=== PATIENT | female | born 1935 | race Caucasian/White ===

== ENCOUNTER 2016-07-15 21:56 | Inpatient (IN) | payer OTHER ==
[2016-07-15] MEDS ORDERED: NS 1,000 ML IV ONE (22:41)
[2016-07-15] MEDS ORDERED: FAMOTIDINE 20 MG/NACL 50 ML IV ONE (22:41)
[2016-07-15] MEDS ORDERED: ONDANSETRON 4 MG/2 ML VIAL IVP ONE (22:41)
--- NOTE | 2016-07-15 22:47 | EDPHY ---
H & P Stated Complaint: Abd pain since 1200 today Time Seen by Provider: 07/15/16 22:11 HPI/ROS: HPI The patient presents with abdominal pain which is in her mid central abdomen and radiates toward her back bilaterally. It has been present since noon today and has been constant, getting progressively worse. It is associated with nausea without vomiting and 2 loose bowel movements. She has not had a fever but has had cold sweats. She thinks the pain began with a feeling of acid reflux and took Zantac for this. REVIEW OF SYSTEMS Constitutional: No fever, no chills. Eyes: No discharge. ENT: No sore throat. Cardiovascular: No chest pain, no palpitations. Respiratory: No cough, no shortness of breath. Gastrointestinal: See HPI Genitourinary: No hematuria. Musculoskeletal: No back pain. Skin: No rashes. Neurological: No headache. PMHx: Status post cholecystectomy, status post appendectomy Soc Hx: Lives in [place] independently PHYSICAL General Appearance: Alert, no distress Eyes: Pupils equal and round no pallor or injection ENT, Mouth: Mucous membranes moist Respiratory: There are no retractions, lungs are clear to auscultation Cardiovascular: Regular rate and rhythm Gastrointestinal: Abdomen is soft with epigastric tenderness without rebound or guarding Neurological: A&O, moves all extremities Skin: Warm and dry, no rashes Musculoskeletal: Neck is supple non tender Extremities: symmetrical, full range of motion Psychiatric: Patient is oriented X 3, there is no agitation Source: Patient Exam Limitations: No limitations - Personal History Current Tetanus/Diphtheria Vaccine: No Current Tetanus Diphtheria and Acellular Pertussis (TDAP): No - Medical/Surgical History Hx Asthma: No Hx Chronic Respiratory Disease: No Hx Diabetes: No Hx Cardiac Disease: No Hx Renal Disease: No Hx Cirrhosis: No Hx Alcoholism: No Hx HIV/AIDS: No Hx Splenectomy or Spleen Trauma: No Other PMH: cholecystectomy, appendectomy, x 2 - Social History Smoking Status: Never smoked Constitutional: Initial Vital Signs Temperature (C) 36.6 C 07/15/16 22:04 Heart Rate 120 H 07/15/16 22:04 Respiratory Rate 16 07/15/16 22:04 Blood Pressure 180/151 H 07/15/16 22:04 O2 Sat (%) 96 07/15/16 22:04 O2 Delivery Mode Room Air Allergies/Adverse Reactions: No Known Allergies Allergy (Verified 07/15/16 22:01) Home Medications: Medication Instructions Recorded Esomeprazole Mag Trihydrate 40 mg PO DAILY18 02/21/14 [Nexium] Atorvastatin Calcium [Lipitor 10 10 mg PO DAILY 02/22/14 mg (*)] Herbals/Supplements -Info Only 1 ea PO DAILY 02/22/14 diphenhydrAMINE [Benadryl 25 MG 25 mg PO HS 02/22/14 (*)] Avapro 07/15/16 Medical Decision Making - Diagnostics Imaging: CT scan of abdomen pelvis performed with IV contrast demonstrates choledocholithiasis, discussed with Dr. Block of Radiology. ED Course/Re-evaluation: In the emergency room, the patient was given IV fluids and several doses of morphine for her pain. Labs were checked and revealed elevated liver tests. CT scan was performed that demonstrated choledocholithiasis. She is status post cholecystectomy. I have discussed the case with the hospitalist Dr. Alvares and we plan to admit her for GI consultation and likely ERCP. Dr. Alvares was able to discuss the case with the substation operator apprentice. I have explained these findings to the patient and her friend at the bedside. Differential Diagnosis: This is a 80-year-old female status post appendectomy and cholecystectomy who presents from home with abdominal pain for the last several hours associated with nausea and loose stools. On exam, she is tachycardic, tender in her epigastric region. Differential diagnosis includes ischemic colitis, gastroenteritis, toxin mediated enterocolitis, pancreatitis, bowel obstruction. - Data Points Laboratory Results: Laboratory Results 07/16/16 00:10 07/16/16 00:10 07/16/16 07/16/16 07/16/16 00:30 00:10 00:10 WBC 11.71 10^3/uL H 10^3/uL (3.80-9.50) RBC 4.69 10^6/uL 10^6/uL (4.18-5.33) Hgb 13.7 g/dL g/dL (12.6-16.3) Hct 40.8 % % (38.0-47.0) MCV 87.0 fL fL (81.5-99.8) MCH 29.2 pg pg (27.9-34.1) MCHC 33.6 g/dL g/dL (32.4-36.7) RDW 13.4 % % (11.5-15.2) Plt Count 181 10^3/uL 10^3/uL (150-400) MPV 11.4 fL fL (8.7-11.7) Neut % (Auto) 91.9 % H % (39.3-74.2) Lymph % (Auto) 1.5 % L % (15.0-45.0) [place] % (Auto) 5.9 % % (4.5-13.0) Eos % (Auto) 0.0 % L % (0.6-7.6) Baso % (Auto) 0.3 % % (0.3-1.7) Nucleat RBC Rel Count 0.0 % % (0.0-0.2) Absolute Neuts (auto) 10.76 10^3/uL H 10^3/uL (1.70-6.50) Absolute Lymphs (auto) 0.18 10^3/uL L 10^3/uL (1.00-3.00) Absolute Monos (auto) 0.69 10^3/uL 10^3/uL (0.30-0.80) Absolute Eos (auto) 0.00 10^3/uL L 10^3/uL (0.03-0.40) Absolute Basos (auto) 0.03 10^3/uL 10^3/uL (0.02-0.10) Absolute Nucleated RBC 0.00 10^3/uL 10^3/uL (0-0.01) Immature Gran % 0.4 % % (0.0-1.1) Immature Gran # 0.05 10^3/uL 10^3/uL (0.00-0.10) VBG Lactic Acid Sodium 140 mEq/L mEq/L (134-144) Potassium 3.6 mEq/L mEq/L (3.5-5.2) Chloride 109 mEq/L mEq/L (97-110) Carbon Dioxide 22 mEq/l mEq/l (22-31) Anion Gap 9 mEq/L mEq/L (8-16) BUN 13 mg/dL mg/dL (7-23) Creatinine 1.0 mg/dL mg/dL (0.6-1.0) Estimated GFR 54 Glucose 154 mg/dL H mg/dL (70-100) Calcium 8.7 mg/dL mg/dL (8.5-10.4) Total Bilirubin 4.8 mg/dL H mg/dL (0.1-1.4) Conjugated Bilirubin 1.9 mg/dL H mg/dL (0.0-0.5) Unconjugated Bilirubin 2.9 mg/dL H mg/dL (0.0-1.1) AST 1428 IU/L H IU/L (14-46) ALT 824 IU/L H IU/L (9-52) Alkaline Phosphatase 151 IU/L H IU/L (38-126) Total Protein 6.6 g/dL g/dL (6.3-8.2) Albumin 4.3 g/dL g/dL (3.5-5.0) Lipase 227.0 IU/L IU/L (23-300) Urine Color YELLOW Urine Appearance CLEAR Urine pH 6.0 (5.0-7.5) Ur Specific [place] 1.010 (1.002-1.030) Urine Protein NEGATIVE (NEGATIVE) Urine Ketones NEGATIVE (NEGATIVE) Urine Blood 1+ H (NEGATIVE) Urine Nitrate NEGATIVE (NEGATIVE) Urine Bilirubin NEGATIVE (NEGATIVE) Urine Urobilinogen NEGATIVE EU EU (0.2-1.0) Ur Leukocyte Esterase NEGATIVE (NEGATIVE) Urine RBC 3-5 /hpf H /hpf (0-3) Urine WBC 1-3 /hpf /hpf (0-3) Ur Epithelial Cells TRACE /lpf /lpf (NONE-1+) Urine Mucus TRACE /lpf /lpf (NONE-1+) Ur Culture Indicated? NOT INDICATED (NI) Urine Glucose 1+ H (NEGATIVE) 07/16/16 00:10 WBC RBC Hgb Hct MCV MCH MCHC RDW Plt Count MPV Neut % (Auto) Lymph % (Auto) [place] % (Auto) Eos % (Auto) Baso % (Auto) Nucleat RBC Rel Count Absolute Neuts (auto) Absolute Lymphs (auto) Absolute Monos (auto) Absolute Eos (auto) Absolute Basos (auto) Absolute Nucleated RBC Immature Gran % Immature Gran # VBG Lactic Acid 1.9 mmol/L mmol/L (0.7-2.1) Sodium Potassium Chloride Carbon Dioxide Anion Gap BUN Creatinine Estimated GFR Glucose Calcium Total Bilirubin Conjugated Bilirubin Unconjugated Bilirubin AST ALT Alkaline Phosphatase Total Protein Albumin Lipase Urine Color Urine Appearance Urine pH Ur Specific [place] Urine Protein Urine Ketones Urine Blood Urine Nitrate Urine Bilirubin Urine Urobilinogen Ur Leukocyte Esterase Urine RBC Urine WBC Ur Epithelial Cells Urine Mucus Ur Culture Indicated? Urine Glucose Medications Given: Discontinued Medications Sodium Chloride (Ns) 1,000 mls @ 0 mls/hr IV ONCE ONE PRN Reason: Wide Open Stop: 07/15/16 22:42 Last Admin: 07/15/16 23:05 Dose: 1,000 mls Famotidine/Sodium Chloride (Pepcid 20 Mg (Premix)) 50 mls @ 200 mls/hr IV EDNOW ONE Stop: 07/15/16 22:55 Last Admin: 07/15/16 23:10 Dose: 50 mls Morphine Sulfate (Morphine) 4 mg IVP EDNOW ONE Stop: 07/15/16 22:42 Last Admin: 07/15/16 23:10 Dose: 4 mg Morphine Sulfate (Morphine) 4 mg IVP EDNOW ONE Stop: 07/16/16 00:30 Last Admin: 07/16/16 00:30 Dose: 4 mg Morphine Sulfate (Morphine) 4 mg IVP EDNOW ONE Stop: 07/16/16 01:46 Last Admin: 07/16/16 01:57 Dose: 4 mg Ondansetron HCl (Zofran) 4 mg IVP EDNOW ONE Stop: 07/15/16 22:42 Last Admin: 07/15/16 23:10 Dose: 4 mg Departure - Departure Disposition: [facility] Acute Clinical Impression: Choledocholithiasis, Abdominal pain, Tachycardia Condition: Fair
[2016-07-15] MEDS ORDERED: IOPAMIDOL (ISOVUE-300) 100 ML BTL IV ONE (23:12)
[2016-07-16 00:22] LABS: % IMMATURE GRANULYOCYTES 0.4 % (0.0-1.1); ABSOLUTE IMMATURE GRANULOCYTES 0.05 10^3/uL (0.00-0.10); ADD DIFF? NO; ADD MORPH? NO; ADD SCAN? NO; ATYPICAL LYMPHOCYTE FLAG 0 (0-99); FRAGMENT RBC FLAG 0 (0-99); HEMATOCRIT 40.8 % (38.0-47.0); HEMOGLOBIN 13.7 g/dL (12.6-16.3); LEFT SHIFT FLG 10 (0-99); LIPEMIA HEMOLYSIS FLAG 80 (0-99); MEAN CELL HEMOGLOBIN 29.2 pg (27.9-34.1); MEAN CELL HEMOGLOBIN CONCENTR. 33.6 g/dL (32.4-36.7); MEAN PLATELET VOLUME 11.4 fL (8.7-11.7); PLATELET CLUMPS FLAG 0 (0-99); PLATELET COUNT 181 10^3/uL (150-400); RED BLOOD CELL COUNT 4.69 10^6/uL (4.18-5.33); RED CELL DISTRIBUTION WIDTH 13.4 % (11.5-15.2)
[2016-07-16 00:33] LABS: ALANINE AMINOTRANSFERASE 824 IU/L (9-52); ALBUMIN 4.3 g/dL (3.5-5.0); ALKALINE PHOSPHATASE 151 IU/L (38-126); ANION GAP 9 mEq/L (8-16); BILIRUBIN,TOTAL 4.8 mg/dL (0.1-1.4); BILIRUBIN-CONJUGATED 1.9 mg/dL (0.0-0.5); BILIRUBIN-UNCONJUGATED 2.9 mg/dL (0.0-1.1); CALCIUM 8.7 mg/dL (8.5-10.4); CARBON DIOXIDE 22 mEq/l (22-31); CHLORIDE 109 mEq/L (97-110); GLOMERULAR FILTRATION RATE 54; GLUCOSE 154 mg/dL (70-100); POTASSIUM 3.6 mEq/L (3.5-5.2); SODIUM 140 mEq/L (134-144); TOTAL PROTEIN 6.6 g/dL (6.3-8.2)
[2016-07-16 00:40] LABS: COLOR YELLOW; LEUKOCYTE ESTERASE,URINE NEGATIVE (NEGATIVE); NITRITE,URINE NEGATIVE (NEGATIVE)
[2016-07-16 00:45] LABS: ASPARTATE AMINOTRANSFERASE 1428 IU/L (14-46)
[2016-07-16 01:05] LABS: MUCUS TRACE /lpf (NONE-1+)
[2016-07-16] MEDS ORDERED: ACETAMINOPHEN 325 MG TAB PO PRN (01:57)
[2016-07-16] MEDS ORDERED: ONDANSETRON 4 MG/2 ML VIAL IVP PRN (01:57)
[2016-07-16] MEDS ORDERED: ONDANSETRON DISINTEGRATING 4 MG TAB PO PRN (01:57)
[2016-07-16] MEDS ORDERED: ERTAPENEM 1 GM in NS 100 ML IV SCH ×3 (02:04→21:00)
--- NOTE | 2016-07-16 02:14 | PDGENHP ---
History and Physical - Chief Complaint abdominal pain - History of Present Illness Patient is a 80 year old female with htn, s/p cholecystectomy who presents to the ED with complaint of epigastric abdominal pain. Patient states symptoms started at around noon on the day of presentation, with mild epigastric discomfort/cramping. This pain progressed throughout the day and by the evening she had episodes of nausea, without vomiting. She describes the pain as knawing/ throbbing in nature in the upper half of her abdomen, sometimes radiating to her back. She also reports some associated chills. Denies any chest pain, palpitations, shortness of breath, diarrhea and reports last BM was this afternoon, normal in color and consistency. On arrival to the ED, patient was afebrile, somewhat tachycardic, normal BP. Labs revealed mild leukocytosis, elevated LFTs and bilirubin, normal lipase. CT abd/pelvis was then obtained and revealed choledocholithiasis with mild CBD dilation and stones in the distal CBD. History Information - Allergies/Home Medication List Allergies/Adverse Reactions: No Known Allergies Allergy (Verified 07/15/16 22:01) Home Medications: Esomeprazole Mag Trihydrate [Nexium] 40 mg PO DAILY18 02/21/14 [Last Taken 02/20] Atorvastatin Calcium [Lipitor 10 mg (*)] 10 mg PO DAILY 02/22/14 [Last Taken 07/01] Herbals/Supplements -Info Only 1 ea PO DAILY 02/22/14 [Last Taken Unknown] diphenhydrAMINE [Benadryl 25 MG (*)] 25 mg PO HS 02/22/14 [Last Taken 02/20/14] Avapro 07/15/16 [Last Taken Unknown] I have personally reviewed and updated: family history, medical history, social history, surgical history - Past Medical History hypertension Additional medical history: h/o hyperparathyroidism, s/p Parathyroidectomy - Surgical History Additional surgical history: appendectomy. cholecystectomy. parathyroidectomy. cataract repair. tonsillectomy. x 2 - Family History Positive for: non-pertinent - Social History Smoking Status: Never smoked Alcohol Use: None Drug Use: None Additional social history: Patient lives alone with 2 cats and 2 dogs, independent in ADLs. Daughter lives in the area, is involved in her care. Review of Systems ROS: 10pt was reviewed & negative except for what was stated in HPI & below Physical Exam Temp Pulse Resp BP Pulse Ox 36.8 C 128 H 16 163/93 H 93 07/16/16 01:23 07/16/16 01:23 07/16/16 01:23 07/16/16 01:23 07/16/16 01:23 Constitutional: no apparent distress, appears nourished, uncomfortable Eyes: PERRL, anicteric sclera, EOMI Ears, Nose, Mouth, Throat: hearing normal, ears appear normal, no oral mucosal ulcers, dry mucous membranes Cardiovascular: regular rate and rhythym, no murmur, rub, or gallop, pulses symmetric bilaterally, tachycardia, No JVD, No edema Peripheral Pulses: 2+: dorsalis-pedis (R), dorsalis-pedis (L) Respiratory: no respiratory distress, no rales or rhonchi, clear to auscultation Gastrointestinal: normoactive bowel sounds, no palpable masses, tenderness ( slight tenderness in epigastrum), No guarding, No rebound, No distension Genitourinary: no bladder fullness, no bladder tenderness Skin: warm, normal color, no rashes or abrasions, no fluctuance, no induration, No mottled Musculoskeletal: full muscle strength, no muscle tenderness, normal joint ROM, no joint effusions Neurologic: AAOx3, sensation intact bilaterally, CN II-XII Intact, No weakness, No numbness, No facial droop Psychiatric: interacting appropriately, not anxious, not encephalopathic, thought process linear Lab Data & Imaging Review 07/16/16 00:10 07/16/16 00:10 WBC 11.71 10^3/uL (3.80-9.50) H 07/16/16 00:10 RBC 4.69 10^6/uL (4.18-5.33) 07/16/16 00:10 Hgb 13.7 g/dL (12.6-16.3) 07/16/16 00:10 Hct 40.8 % (38.0-47.0) 07/16/16 00:10 MCV 87.0 fL (81.5-99.8) 07/16/16 00:10 MCH 29.2 pg (27.9-34.1) 07/16/16 00:10 MCHC 33.6 g/dL (32.4-36.7) 07/16/16 00:10 RDW 13.4 % (11.5-15.2) 07/16/16 00:10 Plt Count 181 10^3/uL (150-400) 07/16/16 00:10 MPV 11.4 fL (8.7-11.7) 07/16/16 00:10 Neut % (Auto) 91.9 % (39.3-74.2) H 07/16/16 00:10 Lymph % (Auto) 1.5 % (15.0-45.0) L 07/16/16 00:10 [place] % (Auto) 5.9 % (4.5-13.0) 07/16/16 00:10 Eos % (Auto) 0.0 % (0.6-7.6) L 07/16/16 00:10 Baso % (Auto) 0.3 % (0.3-1.7) 07/16/16 00:10 Nucleat RBC Rel Count 0.0 % (0.0-0.2) 07/16/16 00:10 Absolute Neuts (auto) 10.76 10^3/uL (1.70-6.50) H 07/16/16 00:10 Absolute Lymphs (auto) 0.18 10^3/uL (1.00-3.00) L 07/16/16 00:10 Absolute Monos (auto) 0.69 10^3/uL (0.30-0.80) 07/16/16 00:10 Absolute Eos (auto) 0.00 10^3/uL (0.03-0.40) L 07/16/16 00:10 Absolute Basos (auto) 0.03 10^3/uL (0.02-0.10) 07/16/16 00:10 Absolute Nucleated RBC 0.00 10^3/uL (0-0.01) 07/16/16 00:10 Immature Gran % 0.4 % (0.0-1.1) 07/16/16 00:10 Immature Gran # 0.05 10^3/uL (0.00-0.10) 07/16/16 00:10 VBG Lactic Acid 1.9 mmol/L (0.7-2.1) 07/16/16 00:10 Sodium 140 mEq/L (134-144) 07/16/16 00:10 Potassium 3.6 mEq/L (3.5-5.2) 07/16/16 00:10 Chloride 109 mEq/L (97-110) 07/16/16 00:10 Carbon Dioxide 22 mEq/l (22-31) 07/16/16 00:10 Anion Gap 9 mEq/L (8-16) 07/16/16 00:10 BUN 13 mg/dL (7-23) 07/16/16 00:10 Creatinine 1.0 mg/dL (0.6-1.0) 07/16/16 00:10 Estimated GFR 54 07/16/16 00:10 Glucose 154 mg/dL (70-100) H 07/16/16 00:10 Calcium 8.7 mg/dL (8.5-10.4) 07/16/16 00:10 Total Bilirubin 4.8 mg/dL (0.1-1.4) H 07/16/16 00:10 Conjugated Bilirubin 1.9 mg/dL (0.0-0.5) H 07/16/16 00:10 Unconjugated Bilirubin 2.9 mg/dL (0.0-1.1) H 07/16/16 00:10 AST 1428 IU/L (14-46) H 07/16/16 00:10 ALT 824 IU/L (9-52) H 07/16/16 00:10 Alkaline Phosphatase 151 IU/L (38-126) H 07/16/16 00:10 Total Protein 6.6 g/dL (6.3-8.2) 07/16/16 00:10 Albumin 4.3 g/dL (3.5-5.0) 07/16/16 00:10 Lipase 227.0 IU/L (23-300) 07/16/16 00:10 Urine Color YELLOW 07/16/16 00:30 Urine Appearance CLEAR 07/16/16 00:30 Urine pH 6.0 (5.0-7.5) 07/16/16 00:30 Ur Specific [place] 1.010 (1.002-1.030) 07/16/16 00:30 Urine Protein NEGATIVE (NEGATIVE) 07/16/16 00:30 Urine Ketones NEGATIVE (NEGATIVE) 07/16/16 00:30 Urine Blood 1+ (NEGATIVE) H 07/16/16 00:30 Urine Nitrate NEGATIVE (NEGATIVE) 07/16/16 00:30 Urine Bilirubin NEGATIVE (NEGATIVE) 07/16/16 00:30 Urine Urobilinogen NEGATIVE EU (0.2-1.0) 07/16/16 00:30 Ur Leukocyte Esterase NEGATIVE (NEGATIVE) 07/16/16 00:30 Urine RBC 3-5 /hpf (0-3) H 07/16/16 00:30 Urine WBC 1-3 /hpf (0-3) 07/16/16 00:30 Ur Epithelial Cells TRACE /lpf (NONE-1+) 07/16/16 00:30 Urine Mucus TRACE /lpf (NONE-1+) 07/16/16 00:30 Ur Culture Indicated? NOT INDICATED (NI) 07/16/16 00:30 Urine Glucose 1+ (NEGATIVE) H 07/16/16 00:30 Visualized and Interpreted imaging results: Yes Interpretation: CT abd/pelvis: Moderate dilatation CBD with sludge vs stones in distal CBD Assessment & Plan Assessment: Patient is a 80 year old female with previous cholecystectomy who presents to the ED with 1 day of abdominal pain and nausea. ED work up reveals likely choledocholithiasis. Plan: # choledocholithiasis Patient with epigastric pain, deranged LFTs and CT showing sludge vs stones in a dilated CBD. GI has been consulted and will perform ERCP in AM. Will maintain NPO, give gentle IVF hydration and control symptoms # early cholangitis Patient with mild leukocytosis and tachycardia consistent with possible early cholangitis. Lactic acid is normal and patient is afebrile and hemodynamically stable. Will cover with ertanepem in preparation for ERCP in am. # tachycardia Likely multifactorial, related to acute infection, acute pain and patient anxiety. Will check EKG to confirm sinus rhythm. # hypertension Patient with chronic HTN, BP is elevated on presentation. Will need to confirm and continue her home meds. # dispo: admit to inpatient service for GI procedure # gen: NPO DVT ppx: scd Full code
[2016-07-16] MEDS: NS 1,000 ML IV SCH ×2 (02:33→17:44)
[2016-07-16] MEDS ORDERED: hydrALAZINE 20 MG/ML VIAL IVP PRN (03:34)
[2016-07-16 06:08] LABS: % IMMATURE GRANULYOCYTES 0.6 % (0.0-1.1); ABSOLUTE IMMATURE GRANULOCYTES 0.09 10^3/uL (0.00-0.10); ADD DIFF? NO; ADD MORPH? NO; ADD SCAN? NO; ATYPICAL LYMPHOCYTE FLAG 0 (0-99); FRAGMENT RBC FLAG 0 (0-99); HEMATOCRIT 41.6 % (38.0-47.0); HEMOGLOBIN 13.5 g/dL (12.6-16.3); LEFT SHIFT FLG 50 (0-99); LIPEMIA HEMOLYSIS FLAG 80 (0-99); MEAN CELL HEMOGLOBIN 29.5 pg (27.9-34.1); MEAN CELL HEMOGLOBIN CONCENTR. 32.5 g/dL (32.4-36.7); MEAN PLATELET VOLUME 11.2 fL (8.7-11.7); PLATELET CLUMPS FLAG 30 (0-99); PLATELET COUNT 144 10^3/uL (150-400); RED BLOOD CELL COUNT 4.57 10^6/uL (4.18-5.33); RED CELL DISTRIBUTION WIDTH 13.6 % (11.5-15.2)
[2016-07-16 06:30] LABS: ALANINE AMINOTRANSFERASE 772 IU/L (9-52); ALBUMIN 4.3 g/dL (3.5-5.0); ALKALINE PHOSPHATASE 150 IU/L (38-126); ANION GAP 12 mEq/L (8-16); BILIRUBIN,TOTAL 6.2 mg/dL (0.1-1.4); CALCIUM 8.5 mg/dL (8.5-10.4); CARBON DIOXIDE 18 mEq/l (22-31); CHLORIDE 109 mEq/L (97-110); GLOMERULAR FILTRATION RATE 54; GLUCOSE 154 mg/dL (70-100); MAGNESIUM 1.6 mg/dL (1.6-2.3); POTASSIUM 3.9 mEq/L (3.5-5.2); SODIUM 139 mEq/L (134-144); TOTAL PROTEIN 6.8 g/dL (6.3-8.2)
[2016-07-16 06:41] LABS: TROPONIN I 0.016 ng/mL (0-0.034)
[2016-07-16 06:51] LABS: ASPARTATE AMINOTRANSFERASE 1029 IU/L (14-46)
[2016-07-16 07:02] LABS: BILIRUBIN-CONJUGATED 3.5 mg/dL (0.0-0.5); BILIRUBIN-UNCONJUGATED 2.7 mg/dL (0.0-1.1)
[2016-07-16 07:06] LABS: INR 1.03 (0.83-1.16); PROTIME(PATIENT) 13.4 SEC (12.0-15.0)
[2016-07-16] MEDS ORDERED: GLUCAGON,HUMAN RECOMBINANT 1 MG VIAL ONE (07:09)
[2016-07-16] MEDS ORDERED: IOTHALAMATE MEG (CONRAY) 50 ML VIAL IV ONE (07:10)
--- NOTE | 2016-07-16 07:43 | CPEKG ---
Heart Rate: 115 RR Interval: 522 P-R Interval: 152 QRSD Interval: 80 QT Interval: 324 QTC Interval: 448 P [place]: 72 QRS [place]: 69 T Wave [place]: -78 EKG Severity - ABNORMAL ECG - EKG Impression: SINUS TACHYCARDIA EKG Impression: Short NM interval EKG Impression: Diffuse ST-T wave abnormalities EKG Impression: Probable left atrial abnormality EKG Impression: No significant change from May 23, 2013 Electronically Signed By: William Mcgrath 16-Jul-2016 08:26:47
--- NOTE | 2016-07-16 08:43 | SOAPPROG ---
SOAP Progress Note Assessment/Plan: S: s/p ERCP without issues. Denies abd pain, N/V Gen: NAD HEENT: PERRLA CV: tachycardic, regular Lungs: CTA GI: soft, NT, ND, +BS A&P: # Cholangitis: cont IVFs, abx, blood cultures pending #Accelerated HTN: untreated. Monitor here. PRN hydral #Sepsis: due to cholangitis. Tachy, elevated WBC. BP stable. Lactate normal Cont IVF, abx #Tachycardia: due to infection, dehydration #Leukocytosis: cont Invanz, blood cultures pending #Hyperbilirubinemia/transaminitis: due to above. #Diet: NPO #DVT ppx: SCDs #Disp: cont IV abx, fluids, await cultures 07/16/16 13:05 07/16/16 13:06 Objective: Vital Signs Temp Pulse Resp BP Pulse Ox 36.8 C 120 H 20 161/83 H 92 07/16/16 07:21 07/16/16 07:21 07/16/16 07:21 07/16/16 07:41 07/16/16 07:21 Laboratory Results 07/16/16 05:45 07/16/16 05:45 07/15/16 07/16/16 07/17/16 05:59 05:59 05:59 Intake Total 1435 Output Total 200 200 Balance 1235 -200 PT 13.4 SEC (12.0-15.0) 07/16/16 06:45 INR 1.03 (0.83-1.16) 07/16/16 06:45 ICD10 Worksheet Patient Problems: Problems Problem Status Onset Abdominal pain Acute Choledocholithiasis Acute Tachycardia Acute Cholecystitis with cholelithiasis Acute
[2016-07-16] MEDS ORDERED: ROCURONIUM 50 MG/5 ML VIAL ONE (09:04)
[2016-07-16] MEDS ORDERED: fentaNYL 100 MCG/2 ML INJ ONE (09:04)
[2016-07-16] MEDS ORDERED: PROPOFOL 200 MG/20 ML VIAL ONE (09:04)
[2016-07-16] MEDS ORDERED: INDOMETHACIN 50 MG SUPP PR ONE (09:30)
[2016-07-16] MEDS ORDERED: DEXAMETHASONE 4 MG/ML VIAL ONE (09:35)
[2016-07-16] MEDS ORDERED: ONDANSETRON 4 MG/2 ML VIAL ONE (09:35)
[2016-07-16] MEDS ORDERED: SUGAMMADEX SODIUM 200 MG/2 ML VIAL IVP ONE (09:56)
--- NOTE | 2016-07-16 10:21 | GCON ---
[f rep st] CONSULTATION DATE OF CONSULTATION: 07/16/2016 REFERRING PHYSICIAN: Vy Alvares MD REASON FOR CONSULTATION: Increased liver function tests/Abnormal imaging. CHIEF COMPLAINT: Abdominal pain. HISTORY OF PRESENT ILLNESS: The patient is a 80-year-old female, with a cholecystectomy in 2013, who presents to [facility] with complaints of epigastric and chest discomfort. The patient did not want to answer questions, thus, most of the information is obtained through the chart. The patient was doing well until the day of admission, when she started to experience a cramping/discomfort in her mid epigastric area. This pain radiated to her chest and she did have some heartburn symptoms as well. The pain became more gnawing, throbbing, with radiation to the back. The pain was worsened with oral intake with no alleviating factors. Due to these symptoms, she came to [facility] for further evaluation. She had blood work done revealing an elevated alkaline phosphatase of 151. She also had imaging test, which did reveal a dilated common bile duct with choledocholithiasis. I am asked by Dr. Alvares to see the patient in consultation regarding biliary obstruction. PAST MEDICAL HISTORY: Hypertension, hyperparathyroidism. PAST SURGICAL HISTORY: Cholecystectomy, appendectomy, cataract repair, tonsillectomy, . FAMILY HISTORY: Adopted. SOCIAL HISTORY: No significant tobacco use. Lives alone. REVIEW OF SYSTEMS: A 12-point comprehensive review of systems was asked. Pertinent positives and negatives as per HPI. PHYSICAL EXAM: VITAL SIGNS: Blood pressure 161/83, heart rate 120, respirations 20, temperature 36.8. GENERAL APPEARANCE: In no apparent distress. HEENT: Slight icterus. CARDIOVASCULAR: Regular rate and rhythm. Positive S1, S2. No murmur is appreciated. LUNGS: Clear to auscultation bilaterally. No wheezes, rales, rhonchi. ABDOMEN: Soft. Some slight tenderness in the epigastrium. No guarding or rebound. Positive bowel sounds. EXTREMITIES: No clubbing, cyanosis or edema. NEUROLOGIC: 2 through 12 grossly intact. SKIN: No rash. PSYCH: Normal affect. MUSCULOSKELETAL: No joint effusions or obvious deformities known. BLOOD WORK: Sodium 139. Total bilirubin 6.2, AST 1029, ALT 772, alkaline phosphatase 150. WBCs 14.4, hemoglobin 13.5, hematocrit 41.6, platelets 144. ASSESSMENT AND PLAN: 1. Elevated liver function tests,- with dilation of common bile duct with possible stones. Tachycardic with elevated white cell count. Recommend to proceed with urgent ERCP for biliary decompression due to possible cholangitis. . The risks, benefits, and alternatives of the procedure were discussed in great detail with the patient. The risk of infection, bleeding, perforation, sedation, and pancreatitis were discussed. Due to her uncontrolled hypertension , she is at an increased risk of sedation. All questions answered and informed consent was obtained. 2. History of hypertension, poorly controlled. Thank you very much for this consultation. /[id number]/MODL MTDD
--- NOTE | 2016-07-16 10:54 | SOAPPROG ---
SOAP Progress Note Assessment/Plan: Assessment: Plan: 07/16/16 10:51 GI note S/p ERCP with significant amount of stones/debris. Multiple balloon sweeps performed with extraction of debris/stones. + pus seen consistent with cholangitis. 10Fr 7 stent placed. Keep NPO. Continue IV antibiotics and hydration. See dictated report for details. Objective: Vital Signs Temp Pulse Resp BP Pulse Ox 37 C 128 H 22 H 154/70 H 92 07/16/16 10:43 07/16/16 10:43 07/16/16 10:45 07/16/16 10:43 07/16/16 10:45 Laboratory Results 07/16/16 05:45 07/16/16 05:45 07/15/16 07/16/16 07/17/16 05:59 05:59 05:59 Intake Total 1435 850 Output Total 200 200 Balance 1235 650 PT 13.4 SEC (12.0-15.0) 07/16/16 06:45 INR 1.03 (0.83-1.16) 07/16/16 06:45 ICD10 Worksheet Patient Problems: Problems Problem Status Onset Cholecystitis with cholelithiasis Acute Choledocholithiasis Acute Abdominal pain Acute Tachycardia Acute
--- NOTE | 2016-07-16 11:11 | GPN ---
[f rep st] PROCEDURE NOTE DATE OF PROCEDURE: 07/16/2016 PROCEDURE: Endoscopic retrograde cholangiopancreatography with biliary sphincterotomy, extraction of stones, placement of a stent. INDICATION: The patient is a 80-year-old female who presents with increasing liver function tests, abdominal pain, as well as abnormal imaging. She was noted to have a dilated duct as well as choledocholithiasis on the CT scan. On blood work, she does have an increasing white cell count, as well as being tachycardic. She presents for urgent biliary decompression. CONSENT: Risks, benefits, and alternatives of the procedure were discussed in great detail with the patient. Risks of infection, bleeding, perforation, sedation, and pancreatitis were discussed. All questions answered, informed consent obtained. MEDICATIONS: General anesthesia. Please see anesthesia for details. Rectal indomethacin 100 mg x1. Of note, she is already on antibiotics. ESTIMATED BLOOD LOSS: Insignificant. ERCP EXAMINATION: The Olympus duodenoscope was inserted in the mouth to second portion of the duodenum. The ampulla brought into view. It was slightly bulging. Using a [employer] sphincterotome and a 0.035-inch wire, a wire was advanced to the common bile duct using wire-guided technique. No pancreatic duct injection or manipulation was performed. Contrast was injected. I personally interpreted the bile duct imaging. Ductal flow was adequate and filled the entire biliary tree. A cholangiogram was performed and multiple filling defects were seen and were approximately 1.5 cm, 1 cm, 8 cm, as well as numerous other small stones measuring 3-4 mm. The CBD was dilated to 14mm. A 1 cm sphincterotomy was performed with multiple balloon sweeps were made with a 9-1mm2 and 12-15 mm balloons with extraction of a significant amount of stones and debris. Even after multiple sweeps, a large amount of debris was still seen. Due to this, a 10-Tajik 7 cm stent was placed. Pus was noted to flow from the bile duct, consistent with cholangitis. Excess air was suctioned and the procedure was terminated. IMPRESSION: Cholangitis, multiple large stones, status post ERCP with a significant amount of stone debris and extraction removed. A 10-Tajik 7 cm stent was placed to ensure biliary drainage. RECOMMENDATIONS: 1. Repeat ERCP in 6 weeks for removal of stent and clearance of the duct. 2. Continue antibiotics for 10 days. 3. N.p.o. for now. If doing okay, consider starting clear liquids tonight. 4. Continue close monitoring. /[id number]/MODL MTDD
[2016-07-16] MEDS ORDERED: BENEFIBER/NUTRISOURCE FIBER PKT 1 EACH PO SCH (16:00)
[2016-07-16] MEDS: FAMOTIDINE 20 MG TAB PO SCH (17:44)
[2016-07-16] MEDS ORDERED: FAMOTIDINE 10 MG PO SCH (18:00)
[2016-07-16] MEDS ORDERED: ATORVASTATIN CALCIUM 10 MG TAB PO SCH (21:00)
[2016-07-17] MEDS ORDERED: diphenhydrAMINE 25 MG CAP PO SCH (03:00)
[2016-07-17] MEDS: NS 1,000 ML IV SCH (10:54)
[2016-07-17 11:42] LABS: ALANINE AMINOTRANSFERASE 351 IU/L (9-52); ALBUMIN 3.2 g/dL (3.5-5.0); ALKALINE PHOSPHATASE 110 IU/L (38-126); ANION GAP 9 mEq/L (8-16); ASPARTATE AMINOTRANSFERASE 129 IU/L (14-46); BILIRUBIN,TOTAL 3.9 mg/dL (0.1-1.4); CALCIUM 7.5 mg/dL (8.5-10.4); CARBON DIOXIDE 19 mEq/l (22-31); CHLORIDE 110 mEq/L (97-110); CREATININE 1.1 mg/dL (0.6-1.0); GLOMERULAR FILTRATION RATE 48; GLUCOSE 100 mg/dL (70-100); POTASSIUM 3.7 mEq/L (3.5-5.2); SODIUM 138 mEq/L (134-144); TOTAL PROTEIN 5.5 g/dL (6.3-8.2)
[2016-07-17 11:48] LABS: BILIRUBIN-CONJUGATED 2.1 mg/dL (0.0-0.5); BILIRUBIN-UNCONJUGATED 1.8 mg/dL (0.0-1.1)
[2016-07-17 12:03] VITALS: TEMP 98.2; O2SAT 90
[2016-07-17 16:10] VITALS: BP 153/92; PULSE 109; RESP 18
[2016-07-17] MEDS: FAMOTIDINE 20 MG TAB PO SCH (16:52)
--- NOTE | 2016-07-17 20:01 | GDS ---
[f rep st] DISCHARGE SUMMARY DISCHARGE DIAGNOSES: 1. Accelerated hypertension. 2. Sepsis secondary to cholangitis. 3. Tachycardia. 4. Leukocytosis. 5. Hyperbilirubinemia, transaminitis. CONSULTATIONS: Gastroenterology. PROCEDURES: Endoscopic retrograde cholangiopancreatography. Noted to have multiple large stones. A 7 cm stent was placed to ensure biliary drainage. HISTORY OF PRESENT ILLNESS: The patient is a 80-year-old female with history of hypertension, status post cholecystectomy, presenting with epigastric abdominal pain starting the day of admission. It was cramping in nature. This pain progressed throughout the day and then developed nausea without vomiting. The pain was throbbing in the upper half of her abdomen, sometimes with radiation to her back. She had reported chills. Denied chest pain, fever, shortness of breath, diarrhea. No bloody stools. Upon arrival in the emergency room, the patient was afebrile, tachycardic. CT abdomen and pelvis revealed choledocholithiasis and mild CBD dilatation and stones. HOSPITAL COURSE BY PROBLEM: 1. Acute cholangitis: Secondary to multiple stones in the common bile duct. Patient underwent ERCP with stent placement. LFTs initially elevated with AST 1400, ALT 824. Much improved today with AST 129, ALT 351. Patient is without pain today and tolerating the liquid diet. Dr. Loya with gastroenterology recommended followup in 6 weeks to remove the stent. Will continue Cipro for a total of 7 days of antibiotics. 2. Leukocytosis secondary to early cholangitis: Patient was empirically treated with IV antibiotics here. Cultures remained negative to date. Patient also had a GI panel that was negative. Hemodynamically stable and afebrile. Was to continue antibiotics for a total 7 days. 3. Tachycardia: Patient was persistently tachycardiac during hospital stay. Initially thought to be from sepsis. However, upon review of records, the patient has been tachycardiac prior hospitalizations since 2013. The patient's EKG here with tachycardia and LVH. Could consider outpatient echo. 4. Hypertension: Patient was initially with soft blood pressures due to acute illness. Held the home medications. She is now hypertensive and may resume these tomorrow. 5. Sepsis due to cholangitis. Patient initially with elevated white count and tachycardia. Lactate was normal. Received IV fluids and antibiotics. This has since resolved. DISPOSITION: Patient is stable for discharge, tolerating p.o. intake. PHYSICAL EXAMINATION: GENERAL: No acute distress. HEENT: PERRLA, EOMI. Moist mucous membranes. CV: Tachycardiac, regular. No murmurs, gallops, or rubs. LUNGS : Clear to auscultation. ABDOMEN: Soft, nontender, nondistended. Positive bowel sounds. : No suprapubic tenderness. MUSCULOSKELETAL: 5/5 upper and lower extremity strength. NEURO: 2 through 12 intact. PSYCH: Alert and oriented x3. MEDICATIONS: New medications: Cipro 500 mg b.i.d. for 5 days. FOLLOWUP: Dr. Loya in 6 weeks for stent removal. Time spent on DC: 60 min in which >35 min spent counseling on diet, FU and return precautions with pt /[id number]/MODL [id number]
[2016-07-20] MEDS ORDERED: ALENDRONATE SODIUM 70 MG TAB PO SCH (09:00)
== END 2016-07-17 17:56 | disposition home or self-care (01) | DRG 872 ==
LOC: F3E 07-16 02:16
PROVIDERS: ADMIT Internal Medicine; ATTEND Internal Medicine
DX: A41.9 Sepsis, unspecified organism (principal); K80.30 Calculus of bile duct with cholangitis, unspecified, without obstruction; E21.3 Hyperparathyroidism, unspecified; I10 Essential (primary) hypertension
CPT/HCPCS: 96374; C2625; J0360; J1100; J1335; J1610; J2405; J2704; J3010; Q9961; Q9967

== ENCOUNTER → 2016-09-08 | Day surgery (SDC) | payer OTHER ==
[~2016-09-08] MED LIST: GLUCAGON,HUMAN RECOMBINANT 1 MG VIAL ONE; INDOMETHACIN 50 MG SUPP PR ONE; IOTHALAMATE MEG (CONRAY) 50 ML VIAL IV ONE; LABETALOL HCL 50 MG/10 ML SYR ONE; LIDOCAINE 1% 2 ML INJ ONE; LIDOCAINE 1% 5 ML SDV ID PRN; LR 1,000 ML IV ONE; PROPOFOL 200 MG/20 ML VIAL ONE; ROCURONIUM 50 MG/5 ML VIAL ONE; SUGAMMADEX SODIUM 200 MG/2 ML VIAL IVP ONE; amLODIPine BESYLATE 5 MG TAB PO ONE; fentaNYL 100 MCG/2 ML INJ ONE; levOFLOXACIN 500 MG/DEXTROSE 100 ML IV ONE; levOFLOXACIN 500 MG/DEXTROSE/100 ML BAG IV ONE
--- NOTE | 2016-09-08 13:46 | GPN ---
[f rep st] PROCEDURE NOTE DATE OF PROCEDURE: 09/08/2016 PROCEDURE: Endoscopic retrograde cholangiopancreatography with stone extraction , stent removal. INDICATION: Ms. Jefferson is a 80-year-old female who presents for biliary decompression. She had a previous ERCP with multiple large common bile duct stones seen. The CBD could not be cleared and a plastic stent was placed. She presents for further evaluation and clearance of the common bile duct. CONSENT: Risks, benefits, and alternatives of the procedure were discussed in great detail with the patient. Risks of infection, bleeding, perforation, sedation, and pancreatitis were discussed. All questions were answered. Informed consent was obtained. MEDICATIONS: General anesthesia. Please see Anesthesiology details. Levaquin 500 mg IV x1. Indomethacin rectal 100 mg p.o. x1. ESTIMATED BLOOD LOSS: None. ERCP EXAMINATION: The Olympus duodenoscope was inserted in the mouth down to the second portion of the duodenum. The ampulla was brought into view. Emanating from the ampulla, was a 10-[place] stent. This was snared and removed through scope. Using a [employer] sphincterotome and a 0.035 inch wire, a wire was advanced into the common bile duct and intrahepatic using the wire guided technique. No pancreatic duct manipulation was performed. Using A 9-12mm balloon, an occlusion cholangiogram was performed. Contrast was injected with good visualization of the CBD. I personally interpreted the bile duct images in real time. Several filling defects of 4-7mm were seen. Multiple balloon sweeps were made with a 9 and 12 mm balloon with extraction of debris and several small stones. A 15 to 18 mm balloon was then utilized, with multiple sweeps. On final cholangiogram, no obvious filling defect noted. IMPRESSION: 1. Removal of stent. 2. Choledocholithiasis status post extraction. RECOMMENDATIONS: 1. Clear liquid diet until tomorrow. 2. Ciprofloxacin 500 mg p.o. b.i.d. x3 days. 3. Continue previous medications. /[id number]/MODL MTDD
== END | disposition home or self-care (01) ==
LOC: FSGY 10:43
PROVIDERS: ATTEND Internal Medicine Gastroenterology
PROC: 0FC94ZZ Extirpation of Matter from Common Bile Duct, Percutaneous Endoscopic Approach (ICD-10-PCS; principal; 2016-09-08 12:15)
DX: K80.50 Calculus of bile duct without cholangitis or cholecystitis without obstruction (principal); I10 Essential (primary) hypertension
CPT/HCPCS: J1610; J1956; J2704; J3010; Q9961

== ENCOUNTER → 2017-04-21 | Outpatient (CLI) | payer OTHER | LOC: BMCIMAGING 14:21 | PROVIDERS: ATTEND Internal Medicine Endocrinology, Diabetes & Metabolism | DX: Z13.820 Encounter for screening for osteoporosis (principal); M81.0 Age-related osteoporosis without current pathological fracture; E21.0 Primary hyperparathyroidism ==

== ENCOUNTER → 2017-09-29 | Outpatient (CLI) | payer OTHER | LOC: BMCIMAGING 12:45 | PROVIDERS: ATTEND Orthopaedic Surgery | DX: S69.91XA Unspecified injury of right wrist, hand and finger(s), initial encounter (principal) ==

== ENCOUNTER → 2017-10-26 | Outpatient (CLI) | payer OTHER | LOC: BMCIMAGING 14:53 | PROVIDERS: ATTEND Orthopaedic Surgery Hand Surgery | DX: M25.552 Pain in left hip (principal); M16.12 Unilateral primary osteoarthritis, left hip ==

== ENCOUNTER → 2018-01-10 | Outpatient (CLI) | payer OTHER | LOC: FIMAGING 13:39 | PROVIDERS: ATTEND Internal Medicine | DX: M51.26 Other intervertebral disc displacement, lumbar region (principal); M51.36 Other intervertebral disc degeneration, lumbar region ==

== ENCOUNTER → 2018-02-05 | Outpatient (CLI) | payer OTHER | LOC: BMCIMAGING 13:29 | DX: M25.562 Pain in left knee (principal) ==

== ENCOUNTER → 2018-06-04 | Outpatient (CLI) | payer OTHER | LOC: BMCIMAGING 13:10 | PROVIDERS: ATTEND Family Medicine | DX: M18.11 Unilateral primary osteoarthritis of first carpometacarpal joint, right hand (principal) ==